=== PATIENT | female | born 1975 | race Caucasian/White ===

== ENCOUNTER 2022-09-23 14:42 | Outpatient (CLI) | payer OTHER, SELFPAY ==
[2022-09-23 15:01] LABS: Basophils Absolute Auto 0.1 K/mm3 (0.0-0.1); Basophils Percent Auto 0.8 % (0.2-1.2); Eosinophils Absolute Auto 0.1 K/mm3 (0-0.3); Eosinophils Percent Auto 1.8 % (0-4.4); Hematocrit 39.6 % (37.0-47.0); Hemoglobin 13.1 g/dL (12.0-15.0); Immature Granulocyte Absolute 0.01 K/mm3 (0.00-0.031); Immature Granulocyte Percent A 0.2 % (0-0.5); Lymphocytes Absolute Auto 2.62 K/mm3 (0.9-3.2); Lymphocytes Percent Auto 42.5 % (18.3-44.2); Mean Corpuscular HGB Conc 33.1 g/dl (32-36); Mean Corpuscular Hemoglobin 29.6 pg (26-34); Mean Corpuscular Volume 89.4 fl (80-100); Mean Platelet Volume 9.5 fl (7.4-10.4); Monocytes Absolute Auto 0.5 K/mm3 (0.1-0.6); Monocytes Percent Auto 8.1 % (2.6-8.5); Neutrophils Absolute Auto 2.9 K/mm3 (1.3-6.7); Neutrophils Percent Auto 46.6 % (45.5-73.1); Platelet Count Result 269 k/mm3 (150-375); Red Blood Count 4.43 M/mm3 (4.2-5.4); Red Cell Distribution Width 12.3 % (11.5-14.5); White Blood Count 6.2 K/mm3 (4.5-10.0)
[2022-09-23 17:12] LABS: Vitamin D 25 Hydroxy 32.5 ng/mL
[2022-09-23 17:55] LABS: Alanine Aminotransferase 26 U/L (6-35); Albumin Level 4.8 g/dL (3.5-5.1); Alkaline Phosphatase 104 U/L (38-126); Anion Gap 12 mmol/L (8-16); Aspartate Amino Transferase 32 U/L (14-36); Bilirubin,Total 0.5 mg/dL (0.2-1.3); Blood Urea Nitrogen 12 mg/dL (7-17); Calcium 9.1 mg/dL (8.4-10.2); Carbon Dioxide 24 mmol/L (22-30); Chloride 103 mmol/L (98-107); Cholesterol 182 mg/dL (0-200); Estimated Glomerular Filt Rate > 60; Glucose 94 mg/dL (65-110); HDL Direct 59 mg/dL; Magnesium 2.4 mg/dL (1.6-2.3); Potassium 4.1 mmol/L (3.4-5.0); Sodium 139 mmol/L (137-145); Triglycerides 98 mg/dL (<150)
[2022-09-23 18:05] LABS: LDL Cholesterol Direct 81 mg/dL
== END 2022-09-23 14:43 | disposition home or self-care (01) ==
LOC: ANHLAB 14:45
PROVIDERS: PCP Internal Medicine; Visit Provider Physician Assistant Medical
DX: Z00.00 Encounter for general adult medical examination without abnormal findings (principal)
CPT/HCPCS: 36415; 80053; 80061; 82306; 82607; 83735; 84443; 85025

== ENCOUNTER 2023-02-12 16:32 | Outpatient (CLI) | payer OTHER, SELFPAY ==
[2023-02-12 18:20] LABS: Anion Gap 9 mmol/L (8-16); Blood Urea Nitrogen 15 mg/dL (7-17); Calcium 9.7 mg/dL (8.4-10.2); Carbon Dioxide 26 mmol/L (22-30); Chloride 102 mmol/L (98-107); Estimated Glomerular Filt Rate > 60; Glucose 89 mg/dL (65-110); Potassium 3.9 mmol/L (3.4-5.0); Sodium 137 mmol/L (137-145)
[2023-02-12 20:23] LABS: Hemoglobin A1C 5.3 % (<5.7)
== END 2023-02-12 16:33 | disposition home or self-care (01) ==
LOC: ANHLAB 16:34
PROVIDERS: PCP Internal Medicine; Visit Provider Physician Assistant Medical
DX: H53.9 Unspecified visual disturbance (principal); R53.83 Other fatigue
CPT/HCPCS: 36415; 80048; 83036; 84443

== ENCOUNTER 2023-07-07 16:00 | Outpatient (RCR) | payer OTHER, SELFPAY ==
--- NOTE | 2023-05-20 08:37 | PTOPEVAL1 ---
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 Notes also that she rests on her left arm with multiple activities. Notes also left shoulder rolls forward with sleeping. Tried some chest openers on the floor but had no improvement. Kinesiology tape helped some. Notes relief with rolling shoulder back Low back. Hx of herniated disc. 21 y/ ago had to sit with RLE extended. Went through therapy at that point. Was a candidate for disc replacement at the time but was young and surgeon didn?t want to do on a person who hadn't had children. Largest issue with the back is ?massive restless legs?. Not as much problem sleeping but sitting on the couch at the end of the night. Usually sitting in more supportive chair relieves issue. Reports will do exercises for back pain and this helps the pain Reported Pain Level Pain Score 4,0: Self Report Assessment PT Clinical Summary Pt presents with complaints of neck and back pain. Pt has a history of disc herniation multiple years ol and is unsure of which level of lumbar the injury is located, has not had a recent MRI for this issue. 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 Pt is functional with movement during evaluation with a 0/10 back pain and a 4/10 neck pain. However her pain levels do increase to 5/10 for her back and 9/10 for her neck. Evaluation shows what appears to be a significant leg length discrepancy with her RLE being longer by approx 1/ 2 inch, scoliotic curvature throughout lumbar and thoracic spine and prominent right sided thoracic rib hump. Pt also demo's abnormal postures with flattened kyphosis, forward shoulders, and mild forward head. Pt also demo's multiple areas of increased resting muscle tone, compensatory movement patterns with ROM testing, and weakness of gluteal musculature. Pt will benefit from physical therapy to address deficits thus improving mihir
--- NOTE | 2023-08-07 11:33 | PTOPDC ---
Assessment and note entered by Monet Samson, PT Assessment Status Discharge - Pt Not Present Diagnosis cervicalgia, low back pain Assessment PT Clinical Summary Pt presented consistently for her therapy sessions for her neck and back pain. She reports her restless leg related to her back is greatly improved, and has been consistent with use of her heel lift to correct her leg length discrepancy. Pt did receive a trigger point injection to assist in the muscle tone of her left upper trap however overall reports of pain are significantly reduced compared to evaluation. Pt is independent in home exercise plan and reports understanding on when to return to therapy. Thus patient is being dischrged from for meeting her goals.
== END 2023-08-07 13:08 | disposition home or self-care (01) ==
LOC: ANHHIPT 16:00
PROVIDERS: PCP Internal Medicine; Visit Provider Physician Assistant Medical
DX: M54.2 Cervicalgia (principal); M54.9 Dorsalgia, unspecified
CPT/HCPCS: 97014; 97110; 97140; 97161; G0283

== ENCOUNTER 2024-10-26 09:36 | Outpatient (CLI) | payer OTHER, SELFPAY ==
--- NOTE | ~2024-10-26 | MM_ITS ---
EXAMINATION: MM screening prerna BI w cathryn HISTORY: Screening TECHNIQUE: Craniocaudal and mediolateral oblique 3-D tomosynthesis images were obtained and synthetic 2-D images were generated. CAD analysis was submitted and interpreted. COMPARISON: No prior mammogram is available for comparison at this institution. BREAST PARENCHYMAL COMPOSITION: Dense: The breasts are heterogeneously dense, which may obscure small masses FINDINGS: There is no evidence of suspicious mass, calcification, or architectural distortion to sugg est malignancy in either breast. There has been no suspicious interval change. IMPRESSION: 1. No mammographic evidence of malignancy. 2. Recommend routine screening mammography in one year. BI-RADS Category 1: Negative Reviewed, dictated and finalized at location B. 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
== END 2024-10-26 09:37 | disposition home or self-care (01) ==
LOC: ANHIMG 09:39
PROVIDERS: PCP Physician Assistant Medical; Visit Provider Physician Assistant Medical
DX: Z12.31 Encounter for screening mammogram for malignant neoplasm of breast (principal)
CPT/HCPCS: 77063; 77067

== ENCOUNTER 2024-11-29 14:35 | Outpatient (CLI) | payer OTHER, SELFPAY ==
--- NOTE | ~2024-11-29 | US_ITS ---
Duplex Sonography of the left extremity: Indication: Abnormal findings of blood chemistry Findings: Sagittal and transverse B-mode images as well as color-flow imaging were performed on the l eft femoral and popliteal veins. B-mode examination was done without and with compression in the tra nsverse plane. There is good visualization of the common femoral, proximal profunda femoral, superfi cial femoral, greater saphenous, and popliteal veins. Normal flow was seen on color-flow imaging. No rmal compressibility was demonstrated. Visualized calf veins are also patent. Impression: No evidence of deep vein thrombosis involving the left lower extremity. Reviewed, dictated and finalized at location M. NESS SERVICES DIRECTOR Impression: No evidence of deep vein thrombosis involving the left lower extremity.
--- NOTE | ~2024-11-29 | CT_ITS ---
EXAMINATION: CTA chest PE protocol DATE: 11/29/2024 14:03 INDICATION: R79.89 - Other specified abnormal findings of blood chemi... TECHNIQUE: Computed tomography angiography (CTA) of the chest was performed with 100 mL Omnipaque-350 intravenous contrast timed to evaluate the pulmonary arteries. Coronal maximum intensity projection 3D-reconstructions were created by the technologist. The dose-length product (DLP) was 285.30 mGy-cm. Automated exposure control and iterative reconstruction technique were employed. COMPARISON: None. FINDINGS: Lung parenchyma and airways: Granulomatous calcifications, otherwise clear. Patent airways. Pleura: Unremarkable. Thoracic inlet, axillae and chest wall: Unremarkable. Thoracic aorta: No significant dilation. No dissection. Mediastinum: Normal. Heart and pericardium: Normal. Coronary artery calcifications: Absent. Upper abdomen: Lobular thickening of the tail the pancreas. Bones: No acute osseous finding. Pulmonary arteries: Study quality: Adequate. No pulmonary emboli detected. IMPRESSION: No CT evidence of acute pulmonary embolus. No acute process detected in the chest. Lobular thickening of the pancreatic tail. Recommend nonemergent but timely MRI of the pancreas witho ut and with contrast to exclude the presence of a mass. Reviewed, dictated and finalized at location K. Y CREW IMPRESSION: No CT evidence of acute pulmonary embolus. No acute process detected in the chest. Lobular thickening of the pancreatic tail. Recommend nonemergent but timely MRI of the pancreas without and with contrast to exclude the presence of a mass.
[2024-11-29 14:52] LABS: Basophils Absolute Auto 0.1 K/mm3 (0.0-0.1); Basophils Percent Auto 0.9 % (0.2-1.2); Eosinophils Absolute Auto 0.1 K/mm3 (0-0.3); Eosinophils Percent Auto 2.3 % (0-4.4); Hematocrit 38.5 % (37.0-47.0); Hemoglobin 12.7 g/dL (12.0-15.0); Immature Granulocyte Absolute 0.02 K/mm3 (0.00-0.031); Immature Granulocyte Percent A 0.4 % (0-0.5); Mean Corpuscular Hemoglobin 29.1 pg (26-34); Mean Corpuscular Volume 88.1 fl (80-100); Mean Platelet Volume 9.6 fl (7.4-10.4); Monocytes Absolute Auto 0.4 K/mm3 (0.1-0.6); Monocytes Percent Auto 7.2 % (2.6-8.5); Neutrophils Percent Auto 52.2 % (45.5-73.1); Platelet Count Result 296 k/mm3 (150-375); Red Blood Count 4.37 M/mm3 (4.2-5.4); Red Cell Distribution Width 12.3 % (11.5-14.5); White Blood Count 5.7 K/mm3 (4.5-10.0)
[2024-11-29 15:04] LABS: Alanine Aminotransferase 46 U/L (6-35); Albumin Level 4.4 g/dL (3.5-5.1); Alkaline Phosphatase 97 U/L (38-126); Amylase 86 U/L (30-110); Anion Gap 1 mmol/L (4-12); Aspartate Amino Transferase 49 U/L (14-36); Bilirubin,Total 0.6 mg/dL (0.2-1.3); Blood Urea Nitrogen 14 mg/dL (7-17); CRP < 0.5 mg/dL (<1.0); Calcium 9.2 mg/dL (8.4-10.2); Carbon Dioxide 28 mmol/L (22-30); Chloride 106 mmol/L (98-107); Cholesterol 218 mg/dL (0-200); Estimated Glomerular Filt Rate > 60; Glucose 88 mg/dL (65-110); HDL Direct 78 mg/dL; Lipase 64 U/L (23-300); Magnesium 2.3 mg/dL (1.6-2.3); Potassium 4.2 mmol/L (3.4-5.0); Sodium 135 mmol/L (137-145); Triglycerides 127 mg/dL (<150)
[2024-11-29 15:13] LABS: LDL Cholesterol Direct 96 mg/dL; Troponin I < 0.012 ng/mL (0.000-0.034)
[2024-11-29 15:34] LABS: Erythrocyte Sedimentation Rate 20 mm/hr (0-20)
[2024-11-29 17:24] LABS: Rheumatoid Factor < 12.0 IU/ML (<12)
[2024-12-01 16:53] LABS: ANA Cascade Screen NEGATIVE (NEGATIVE)
[2024-12-02 12:14] LABS: Homocysteine 6.1 umol/L (<10.4)
== END 2024-11-29 14:36 | disposition home or self-care (01) ==
PROVIDERS: PCP Physician Assistant Medical; Visit Provider Physician Assistant Medical
DX: K86.89 Other specified diseases of pancreas (principal); M79.662 Pain in left lower leg; M25.50 Pain in unspecified joint; M79.10 Myalgia, unspecified site; R07.9 Chest pain, unspecified; R79.89 Other specified abnormal findings of blood chemistry; R53.83 Other fatigue; Q45.3 Other congenital malformations of pancreas and pancreatic duct; M13.0 Polyarthritis, unspecified; E78.5 Hyperlipidemia, unspecified
CPT/HCPCS: 36415; 71275; 80053; 80061; 82150; 82607; 83090; 83690; 83735; 84443; 84484; 85025; 85652; 86038; 86140; 86200; 86225; 86235; 86364; 86430; 93971; Q9967

== ENCOUNTER 2024-12-16 07:44 | Outpatient (CLI) | payer OTHER, SELFPAY ==
--- NOTE | ~2024-12-16 | MR_ITS ---
EXAMINATION: MR abdomen wo/w con DATE: 12/16/2024 08:46 INDICATION: Enlarged pancreatic tail. TECHNIQUE: Magnetic resonance imaging (MRI) of the abdomen was performed without and with 15 mL Multi [place] intravenous contrast. COMPARISON: CT 11/29/2024 FINDINGS: There is diffuse hepatic steatosis. The gallbladder, spleen, pancreas, adrenal glands, and right kidn ey are normal. There is a 2.3 cm cyst in left kidney. There are no dilated loops of bowel. There are no pathologically enlarged lymph nodes. There is no free intraperitoneal fluid. IMPRESSION: 1. Normal pancreas. No abnormal mass. 2. Diffuse hepatic steatosis. Reviewed, dictated and finalized at location A. 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
== END 2024-12-16 07:45 | disposition home or self-care (01) ==
LOC: MICIMG 07:45
PROVIDERS: PCP Physician Assistant Medical; Visit Provider Physician Assistant Medical
DX: Q45.3 Other congenital malformations of pancreas and pancreatic duct (principal); K76.0 Fatty (change of) liver, not elsewhere classified
CPT/HCPCS: 74183; A9577